=== PATIENT | female | born 1970 | race Caucasian/White ===

== ENCOUNTER → 2021-06-17 | Outpatient (CLI) | payer OTHER ==
--- NOTE | 2021-06-17 12:46 | KCIC ---
EXAMINATION: Magnetic resonance imaging (MRI) of the lumbar spine without contrast 06/17/2021 10:45 AM HISTORY: Intervertebral disc degeneration. Chronic lower back pain for one year. TECHNIQUE: Multiplanar multi-weighted MRI of the lumbar spine was performed without intravenous contr ast using the standard lumbar spine protocol. Contrast information: None administered. COMPARISON: None available. FINDINGS: There is 4 mm retrolisthesis of L2 on L3. There is a 2 mm retrolisthesis of L4 on L5 and L5 on S1. Th ere is transitional anatomy at the lumbosacral junction. Rudimentary disc identified at S1-S2. Conus medullaris remains at L1-L2. Distal spinal cord signal intensity is normal in all sequences. Modic ty pe I endplate degenerative changes are identified at L2-L3 and L5-S1 with moderate disc height loss. Disc desiccation is identified all levels of lumbar spine sparing L3-L4. Abdominal aorta is normal in caliber. No suspicious retroperitoneal abnormality is identified. T12-L1: Disc is normal in configuration. No significant facet arthropathy. No neuroforaminal or spina l canal stenosis. L1-L2: There is a disc bulge with right central disc extrusion. No significant facet arthropathy. No neuroforaminal stenosis. Mild spinal canal stenosis without deformity of the conus medullaris. L2-3: There is a posterior disc osteophyte complex with right far lateral disc protrusion. Mild facet arthropathy. Moderate severe right and mild left neuroforaminal stenosis. Mild spinal canal stenosis with mild narrowing the right lateral recess. L3-L4: Disc is normal in configuration. No significant facet arthropathy. No neuroforaminal or spinal canal stenosis. L4-L5: There is a circumferential disc bulge with left central disc extrusion. Mild facet arthropathy with fluid in the right facet joint. Moderate left and mild right neuroforaminal stenosis. Mild spin al canal stenosis. Mild narrowing the left lateral recess. L5-S1: There is a circumferential disc bulge. Mild facet arthropathy. Severe bilateral neuroforaminal stenosis. No significant spinal canal stenosis. IMPRESSION: Moderate degenerative changes of lumbar spine as described in detail above. Transitional anatomy is i dentified the lumbosacral junction. If there is future planning for surgical intervention, considerat ion for dedicated radiographs for counting levels of the spine recommended. Electronically signed by: Isela Garcia MD (06/17/2021 12:44 PM) [id number]
== END ==
LOC: KCIC MRI 10:34
PROVIDERS: ATTEND Family Medicine
DX: M47.817 Spondylosis without myelopathy or radiculopathy, lumbosacral region (principal); M48.07 Spinal stenosis, lumbosacral region; M43.17 Spondylolisthesis, lumbosacral region; M51.27 Other intervertebral disc displacement, lumbosacral region; M25.78 Osteophyte, vertebrae; M51.36 Other intervertebral disc degeneration, lumbar region
CPT/HCPCS: 72148